=== PATIENT | male | born 1985 ===

== ENCOUNTER → 2025-06-01 | Outpatient (REF) | payer OTHER ==
[2025-06-01 13:33] LABS: SEMEN APPEARANCE OPAQUE (OPAQUE); SEMEN VISCOSITY LIQUID (LIQUID); SEMEN VOLUME 1.8 ml (2.0-5.0); SPERM CONCENTRATION 148.4 M/ml (>=15.0); WBC CONCENTRATION <=1 M/ml (<=1 M/ml)
[2025-06-01 13:34] LABS: TOTAL PROGRESSIVE SPERM 114.9 M/Ejac.
== END ==
LOC: M LAB REF 11:50
PROVIDERS: ATTEND Student in an Organized Health Care Education/Training Program
DX: Z31.448 Encounter for other genetic testing of male for procreative management (principal)